=== PATIENT | male | born 1955 | race Caucasian/White ===

== ENCOUNTER 2016-10-29 10:13 | Emergency (ER) | payer BC ==
[~2016-10-29 10:13] MED LIST: ASAB PO; FISH-EPA1000 MG PO; FLOMAX4 PO; IRON325 MG PO; LORT7 PO; MULTIPLE VIT PO; PRAVACHOL40 MG PO; SPIRIVA INH; X5 PO
[2016-10-29 11:41] LABS: BASOPHILS 0.1 %; BASOPHILS ABSOLUTE 0.01 10/3/uL (0.0-0.16); EOSINOPHILS 0.5 %; EOSINOPHILS ABSOLUTE 0.04 10/3/uL (0.0-0.53); ER CBC TAT 0 Hrs 15 Mins; HEMOGLOBIN 14.3 g/dL (13.6-17.8); IMMATURE GRANULOCYTES 0.2 %; IMMATURE GRANULOCYTES ABSOLUTE 0.02 10/3/uL (0.0-0.11); LYMPHOCYTES 19.4 %; LYMPHOCYTES ABSOLUTE 1.56 10/3/uL (0.67-4.30); MEAN CORPUS HGB CONC 34.9 g/dL (32.0-36.0); MEAN CORPUSCULAR VOLUME 88.9 fL (80-100); MEAN PLATELET VOLUME 8.4 fL (9.2-13.0); MONOCYTES 7.8 %; MONOCYTES ABSOLUTE 0.63 10/3/uL (0.21-1.20); NEUTROPHILS ABSOLUTE 5.78 10/3/uL (2.02-8.40); PLATELET COUNT 240 10/3/uL (150-400); RBC DISTRIBUTION WIDTH 13.4 % (12.0-16.0); RED CELL COUNT 4.61 10/6/uL (4.7-6.1)
[2016-10-29 11:43] LABS: MANUAL DIFF NO %
[2016-10-29 12:00] LABS: A/G RATIO 0.8 (0.7-1.9); ALBUMIN 3.4 G/DL (3.5-5.0); ALKALINE PHOSPHATASE 81 U/L (45-117); CHLORIDE, SERUM 105 MMOL/L (96-112); CO2 (CARBON DIOXIDE) 26 MMOL/L (24-34); CREATININE 0.88 MG/DL (0.70-1.30); GFR AFRICAN AMERICAN 109 ML/MIN (>=60); GFR NON AFRICAN AMERICAN 94 ML/MIN (>=60); GLOBULIN 4.4 G/DL (2.5-4.1); GLUCOSE, SERUM 92 MG/DL (60-99); SGOT(AST) 12 U/L (5-40); SGPT(ALT) 20 U/L (5-65); SODIUM, SERUM 138 MMOL/L (135-148); TOTAL BILIRUBIN 0.4 MG/DL (0-1.2); TOTAL PROTEIN 7.8 G/DL (6.0-8.5); TROPONIN I <0.02 NG/ML (<0.05)
[2016-10-29 12:02] LABS: BUN (BLOOD UREA NITROGEN) 14 MG/DL (6-23)
[2016-10-29 12:04] LABS: PARTIAL THROMBO TIME 30.8 SEC (22.5-37.2); PROTIME (NOT ORD) 13.4 SEC (12.0-14.5)
== END 2016-10-29 14:31 | disposition home or self-care (01) ==
LOC: ER 10:13
PROVIDERS: Emergency Medicine
DX: R51 Headache (principal); Z86.73 Personal history of transient ischemic attack (TIA), and cerebral infarction without residual deficits; Z79.82 Long term (current) use of aspirin; Z79.891 Long term (current) use of opiate analgesic; Z79.899 Other long term (current) drug therapy
CPT/HCPCS: 70450; 71020; 80053; 82962; 84484; 85025; 85610; 85730; 93005; 96374; 96375; 99284; A9270-GY; J1200; J2765